=== PATIENT | male | born 1985 | race Caucasian/White ===

== ENCOUNTER 2021-04-26 01:09 | Emergency (ER) | payer BC, SELFPAY ==
[2021-04-26 01:25] VITALS: BP 134/91; PULSE 55; RESP 15; TEMP 36.6; O2SAT 100
--- NOTE | 2021-04-26 03:11 | ED.NECK ---
HPI - Neck Pain/Injury General Chief Complaint: Neck Pain/Injury Stated Complaint: neck/shoulder pain Time Seen by Provider: 04/26/21 02:47 History of Present Illness HPI Narrative: Patient presents with right-sided neck pain and shoulder pain. Symptoms been present for the past 2 days. To be getting worse his instructed him to go to the ER for evaluation so he came in. Tonight he woke up and was having increasing pain or paresthesias to his bilateral hands there is concerned which prompted his ER evaluation. He will remember what he was doing and then initial onset of his pain is initially very dull and just got progressively worse. He feels like his right neck and shoulder are spasming. His pain is achy, constant, worse with moving his neck, radiates from his neck to his right shoulder. Denies any focal areas of weakness he denies any paresthesias at this time. He denies any trauma to the area reports he used to see a chiropractor denies any prior surgical interventions on his neck or shoulder Related Data Allergies Allergy/AdvReac Type Severity Reaction Status Date / Time No Known Allergies Allergy Verified 03/20/21 09:06 Review of Systems Review of Systems: CONSTITUTIONAL: Denies fever, chills, or sweats. EYES: Denies visual changes, redness, or discharge. ENT: Denies rhinorrhea, congestion, sore throat, or otalgia. CARDIOVASCULAR: Denies chest pain, palpitations, or edema. RESPIRATORY: Denies cough or dyspnea. GASTROINTESTINAL: Denies abdominal pain, nausea, vomiting, or diarrhea. GENITOURINARY: Denies dysuria or hematuria. SKIN: Denies rash or itching. MUSCULOSKELETAL: Denies back pain, joint pain, or myalgia. NEUROLOGIC: Denies headache, numbness, dizziness, or weakness. PSYCHIATRIC: Denies anxiety or depression. All systems reviewed & are unremarkable except as noted in HPI and below PMFSH Past Medical History Medical History Anxiety Dyslipidemia Surgical History Surgical History History of wisdom tooth extraction (~2010) Family History Family History Grandparent Diabetes mellitus Father Family history of hypercholesterolemia Grandparent Colon cancer Other Cerebrovascular accident Family history of malignant neoplasm Hypertension Social History Social History Smoking status: Never smoker Alcohol intake: current Substance use: never Substance use type: does not use Gender identity (if verbalized by the patient): Male Sexual Orientation (if Verbalized by the Patient): Straight or Heterosexual Exam Narrative: GENERAL: Well-appearing, well-nourished, and in no acute distress. HEAD: Normocephalic, atraumatic. EYES: PERRLA and EOMI. ENT: Nares clear, no rhinorrhea or epistaxis. Mucous membranes moist. NECK: Supple. No masses. No midline neck tenderness mild diffuse tenderness along the superior aspect of the right trapezius EXTREMITIES: Normal range of motion. No edema. SKIN: Warm, dry, no rash. NEURO: 5 out of 5 strength in the bilateral upper extremities sensation intact to light touch in bilateral upper extremities alert and oriented x3. PSYCH: Normal mood and affect. Course Vital Signs Vital signs: Vital Signs Temperature 36.6 C 04/26/21 01:25 Pulse Rate 55 L 04/26/21 01:25 Respiratory Rate 15 04/26/21 01:25 Blood Pressure 134/91 H 04/26/21 01:25 Pulse Oximetry 100 04/26/21 01:25 Temperature 36.6 C 04/26/21 01:25 Pulse Rate 77 04/26/21 04:01 Respiratory Rate 18 04/26/21 04:01 Blood Pressure 140/70 04/26/21 04:01 Pulse Oximetry 100 04/26/21 04:01 MDM - Neck Pain/Injury MDM Narrative Medical decision making narrative: H&P as above, vss, pt looks clinically well, exam without neurovascular compromise of the upper extremities o
[2021-04-26] MEDS: CYCLOBENZAPRINE HCL 10 MG TABLET PO (03:40)
[2021-04-26] MEDS: KETOROLAC 30 MG/ML VIAL (*BKC) IM (03:40)
[2021-04-26 04:01] VITALS: BP 140/70; PULSE 77; RESP 18; O2SAT 100
== END 2021-04-26 04:02 | disposition home or self-care (01) ==
PROVIDERS: Emergency Provider Emergency Medicine; PCP Family Medicine
DX: M62.838 Other muscle spasm (principal); E78.5 Hyperlipidemia, unspecified
CPT/HCPCS: 96372; 99283; A9270; J1885

== ENCOUNTER 2024-08-31 12:23 | Emergency (ER) | payer BC, SELFPAY ==
[2024-08-31 13:01] VITALS: BP 113/64; PULSE 51; RESP 18; TEMP 36.3; O2SAT 99
[2024-08-31 13:17] LABS: EDCOVIDSCREEN Negative (Negative); EDINFLUASCREEN Negative (Negative); EDINFLUBSCREEN Negative (Negative)
--- OUTSIDE RECORDS SUMMARY | 2024-08-31 13:21 | XMS_ITS | Clinical Summary ---
Author Organization [facility] Address [address] [place] [id number] Care Team Providers Care Hematology Technician Name Role Phone Lul Goss MD Primary Care Provider Social History Tobacco Use Types Packs/Day Years Used Date Smoking Tobacco: Never Assessed Sex and Gender Information Value Date Recorded Sex Assigned at Not on file Legal Sex Male 1:20 PM CDT Gender Identity Not on file Sexual Orientation Not on file Plan of Treatment Health Maintenance Due Date Last Done Comments Annual Physical 1988 Hepatitis C 10/16/2003 Hepatitis B Vaccines (1 of 3 - 19+ 3-dose series) 2004 COVID-19 Vaccine (2023-2 5 season) 2024 02/08/2021, 01/12/2021 Influenza Adult (#1) 2024 DTaP, Tdap and Td Vaccines ( 2 - Td or Tdap) 09/05/2024 09/05/2014 HPV Vaccines Aged Out No longer eligi ble based on patient's age to complete this topic Meningococcal B Vaccine Aged Out No l onger eligible based on patient's age to complete this topic Meningococcal Vaccine Aged Out No shanti alejandro eligible based on patient's age to complete this topic Pneumococcal Vaccine: Pediatrics (0 to 5 Years) and At-Risk Patients (6 to 64 Years) Aged Out No longer eligible b ased on patient's age to complete this topic RSV Immunizations Under 20 Months Aged Out No longer eligible b ased on patient's age to complete this topic Insurance [facility] Care Teams Hematology Technician Relationship Specialty Start Date End Date Lul Goss MD [id number] [place] [address] PCP - General FAMILY PRACTICE 04/26/24
--- NOTE | 2024-08-31 13:24 | ED_ITS ---
HPI - URI/Sore Throat General Chief Complaint: Upper Respiratory Infection Stated Complaint: cough / Upper Respiratory Infection Time Seen by Provider: 08/31/24 13:24 Source: patient, RN notes reviewed and old records reviewed Mode of arrival: ambulatory Limitations: no limitations History of Present Illness HPI Narrative: 38-year-old male presents to the [facility] with complaints of cough, body aches, denies fevers that started on night, 4 days ago. Has been taking cold medicine, symptoms are better today. X-ray for the cough was offered when he was concern for ?walking pneumonia ? , he declined at this time. Onset (ago): day(s) (4) Treatments prior to arrival: cold medicine Related Data Home Medications ?Medication ?Instructions ?Recorded ?Confirmed ?Last Taken ?Type fluticasone propionate 50 2 spray intranasal DAILY PRN 04/30/23 04/28/24 Unknown History mcg/actuation nasal spray,suspension (Flonase Allergy Relief) Allergies Allergy/AdvReac Type Severity Reaction Status Date / Time No Known Allergies Allergy Verified 08/31/24 13:06 Review of Systems Review of Systems: All systems reviewed & are unremarkable except as noted in HPI and below Constitutional: Constitutional: Reports as per HPI ENT: Reports system reviewed and no additional complaints, except as documented Cardiovascular: Cardiovascular: Reports no additional cardiovascular complaints, Denies chest pain and Denies dyspnea Respiratory: Respiratory: Reports as per HPI, Denies chest congestion, Reports cough and Denies dyspnea Musculoskeletal: Musculoskeletal: Reports no additional musculoskeletal complaints Integumentary/Breasts: Skin/Breast: Reports system reviewed and no additional complaints, except as docu PMFSH Past Medical History Medical History Seasonal allergies COVID Dyslipidemia Hemorrhoids Anxiety Surgical History Surgical History History of wisdom tooth extraction (~2010) Family History Family History Grandparent Diabetes mellitus Father Family history of hypercholesterolemia Grandparent Colon cancer Other Cerebrovascular accident Family history of malignant neoplasm Hypertension Social History Social History Social History: , 2 children. Smoking status: Never smoker Alcohol intake: current Substance use: never Substance use type: does not use Lack of Transportation: YES Lack of Food: Sometimes True Current Housing: I Do Not Have Housing Concerned About Future Housing: No Difficulty Paying Gas/Electric Bills: No Difficulty Paying for Meds: No Currently Unemployed: No Education: Bachelor's Degree Difficulty w/ Childcare or Family Care: No Living arrangements: with family Occupation/Education: occupation Additional occupation/education comments: Sales Gender identity (if verbalized by the patient): Male Sexual Orientation (if Verbalized by the Patient): Straight or Heterosexual Agree to blood products: Yes Comments At the time of my signature, I reviewed and agree with the nursing past medical, surgical, social, and family history. There is no relevant family history pertinent to the patient complaint. Exam Const: General: cooperative, healthy appearing, comfortable, no acute distress, well developed, alert and well nourished Nutritional Appearance: well nourished Orientation/consciousness: patient oriented x3 Limitations: no limitations HENMT: Head: normal to inspection Ears: hearing grossly normal bilaterally, external ears normal, TM's normal bilaterally, EAC's normal, mastoids normal and no periauricular adenopathy Mouth: Yes Normal oral and palatal mucosa present, Yes lip normal, Yes tongue normal and Yes moist mucous membranes Throat: posterior oropharynx normal, uvula midline and no uvular edema Eyes: General: appearance normal, both eyes and all related structures Alignment and Position: alignment normal Neck: Neck: normal visual inspection, full ROM, no lymphadenopathy and no meningeal signs Chest: Chest palpation & inspection: normal inspection of the chest Resp: Effort & Inspection: normal respiratory effort and able to speak in complete sentences Auscultation: clear to auscultation bilaterally, no crackles, no rales, no rhonchi and no wheezes Cardio: Rate: regular rate Skin: General skin exam: normal color and no rashes or lesions noted Neuro: General: patient oriented x3, gait normal, moves all extremities and no meningeal signs Cognition (Neuro): normal cognition Speech: normal speech Gait exam (Neuro): Normal gait present Extrem: General: normal to inspection, full ROM, capillary refill normal and normal gait Psych: Appearance: grossly normal and well kempt Mental Status: mental status grossly normal Speech and movement: Normal speech and movement present and Clear speech present Affect: normal affect Attitude: cooperative Course Course Level of Care: Express Care Visit Vital Signs Vital signs: Vital Signs Temperature 97.3 F L 08/31/24 13:01 Pulse Rate 51 L 08/31/24 13:01 Respiratory Rate 18 08/31/24 13:01 Blood Pressure 113/64 08/31/24 13:01 Pulse Oximetry 99 08/31/24 13:01 Oxygen Delivery Room Air 08/31/24 13:01 Temperature 97.3 F L 08/31/24 13:01 Pulse Rate 51 L 08/31/24 13:01 Respiratory Rate 18 08/31/24 13:01 Blood Pressure 113/64 08/31/24 13:01 Pulse Oximetry 99 08/31/24 13:01 Oxygen Delivery Room Air 08/31/24 13:01 Reviewed MDM - URI/Sore Throat MDM Narrative Medical decision making narrative: Patient sitting comfortably in exam room. Nontoxic, vitals stable. Patient in no acute distress. Patient presents with a 4 day history of viral URI symptoms. Flu and COVID were negative in clinic. No acute findings noted on exam. Patient her reported concern for walking pneumonia, discussed doing an x-ray which he declined at this time due to no abnormal lung sounds. And symptoms are improving. Patient appropriate for outpatient treatment with close follow-up Discharge instructions reviewed with patient, as well as provided in writing per nursing staff. The instructions also include specific and strict return/GO TO THE ER as well as f/u information. All questions have been answered, and the patient deny any further questions with discharge and discharge plan. Some parts of this dictation were generated by voice recognition software and may contain typographical and/or grammatical inaccuracies. Differential Diagnosis Differential diagnosis: Likely upper respiratory infection, sinusitis, viral infection, bronchitis and influenza Lab Data Labs: Lab Results 08/31/24 Range/Units 13:15 POC Influenza A Ag Negative (Negative) POC Influenza B Ag Negative (Negative) POC SARS CoV-2 Ag Negative (Negative) Reviewed Critical Care Time Critical Care Time Critical Care Time: No Discharge Plan Discharge Clinical Impression: Upper respiratory infection, viral Patient Disposition: Home, Self-Care Condition: Stable Instructions: Antibiotic Form, Upper Respiratory Infection (ED) Additional Instructions: Your rapid COVID test were negative Your rapid flu test was negative Your symptoms are likely due to a viral illness, which is not treated with antibiotics. Typically viral infections last 7-10 days, can linger for couple of weeks. It is very important to treat your symptoms. Drink plenty of water, Gatorade, Pedialyte, ice pops or Jell-O. -Alternate Tylenol and Motrin per package directions for fever or pain. You can alternate every 4 hours -Antihistamine medication such as Zyrtec/Claritin/Essence during the day can help improve symptoms. -doing daily nasal irrigations can help relieve pressure your sinuses. Things like a Neti pot -Use Flonase twice a day for 5 days then daily to help reduce the inflammation and dry up your sinuses. -You can also use Mucinex. Be sure to drink plenty of water with this medication at least 8 ounces with every dose and it is important to drink 8 to 10 glasses of water per day. Water is a natural decongestant -Eat and drink things that are easy to swallow, like tea or soup, or popsicles. -Oral rinses such as: Salt water gargles and/or may use topical anesthetic (eg. Chloraseptic spray) or lozenges to relieve dryness or throat pain). -Frequent hand washing or hand quality assistant is one of the best ways to prevent spread of infection. -Using a vaporizer or humidifier at night will also help thin secretions and help with coughing up phlegm. -Follow up with primary care provider in 7-10 days if condition is not improving - For new or worsening symptoms go directly to the nearest ER Patient Language: Maldivian Prescriptions: No Action fluticasone propionate [Flonase Allergy Relief] 50 mcg/actuation spray,suspension 2 spray intranasal DAILY PRN Rx Instructions: administer into each nostril sildenafil [Viagra] 100 mg tablet 100 mg PO DAILY PRN (Reason: sexual activity) Qty: 30 0RF hydroxyzine HCl 10 mg tablet 10 mg PO .QD PRN (Reason: anxiety) Qty: 90 1RF Rx Instructions: TAKE 1 TABLET BY MOUTH IN THE MORNING AND 2 TABLETS AT BEDTIME NEEDED FOR ANXIETY Follow-up/Referrals: Ivana Goss MD [Primary Care Provider] - 2 Weeks ([facility] follow- up) Stand Alone Forms: Work/School Release IP Time of Disposition: 13:36
== END 2024-08-31 13:39 | disposition home or self-care (01) ==
PROVIDERS: Emergency Provider Nurse Practitioner; PCP Family Medicine
DX: J06.9 Acute upper respiratory infection, unspecified (principal); Z20.822 Contact with and (suspected) exposure to COVID-19; E78.5 Hyperlipidemia, unspecified; F41.9 Anxiety disorder, unspecified; Z86.16 Personal history of COVID-19
CPT/HCPCS: 87426; 87804; 99212; G0463